=== PATIENT | male | born 1955 | race Caucasian/White ===

== ENCOUNTER 2020-12-09 06:01 | Inpatient (IN) ==
--- NOTE | 2020-12-03 09:44 | PAT Medication Instructions ---
Medication Instructions Date of Service December 03, 2020 Home Medications apixaban 5 mg tablet (Eliquis) 5 mg PO BID aspirin 81 mg tablet 81 mg PO QAM atorvastatin 20 mg tablet 20 mg PO HS diltiazem HCl 120 mg tablet 120 mg PO QAM levetiracetam 500 mg tablet (Keppra) 1,000 mg PO BID metoprolol succinate 50 mg tablet,extended release 24 hr 25 mg PO QAM multivitamin-ferrous fumarate-folic acid 18 mg-400 mcg tablet (Centrum) 1 tab PO QAM ASK your prescriber and surgeon apixaban 5 mg tablet (Eliquis) 5 mg PO BID aspirin 81 mg tablet 81 mg PO QAM DO NOT take the morning of surgery multivitamin-ferrous fumarate-folic acid 18 mg-400 mcg tablet (Centrum) 1 tab PO QAM Take morning of surgery With a small sip of water, OTHERWISE NOTHING TO EAT OR DRINK AFTER MIDNIGHT: diltiazem HCl 120 mg tablet 120 mg PO QAM levetiracetam 500 mg tablet (Keppra) 1,000 mg PO BID metoprolol succinate 50 mg tablet,extended release 24 hr 25 mg PO QAM Take evening before surgery atorvastatin 20 mg tablet 20 mg PO HS levetiracetam 500 mg tablet (Keppra) 1,000 mg PO BID Other Notes If you have any anesthesia-related questions please call us at [phone] or [phone] or [phone] or [phone]
--- NOTE | 2020-12-05 09:41 | Anesthesiology Consultation ---
Date of Service December 05, 2020 Assessment & Plan (1) Encounter for pre-operative examination: - COVID screening: Per assessment on 12/05: Travel screen negative, no known COVID-19 positive contacts or current COVID-19 related symptoms. Preop COVID test being done 12/05 at [facility] visit. Awaiting results. - ETOH use: 3-4 beers/day (typically nighttime). No morning ETOH use per pt. Chart Review Chart Review: Acceptable Risk for Surgery (pending surgeon-ordered cardiology preop evaluation) and Patient seen in Pre Admission Testing Teaching & Discussion Pre-Anesthesia Teaching/Discussion Notes: Instructed NPO after midnight before surgery,except medications with 15 cc of water. Medication instructions provided according to the [facility] guidelines. History Surgery Operation Date: 12/09/20 08:00 Proposed Procedures p Right Common Femoral Endarterectomy - Ortega Gonzalez MD Height/Weight Height: 5 ft 10 in Weight: 65.5 kg Allergies Allergy/AdvReac Type Severity Reaction Status Date / Time No Known Allergies Allergy Verified 12/02/20 15:44 Medications Home Medications Medication Instructions Recorded Confirmed Last Taken apixaban 5 mg tablet (Eliquis) 5 mg PO BID 12/02/20 12/02/20 Unknown aspirin 81 mg tablet 81 mg PO QAM 12/02/20 12/02/20 Unknown atorvastatin 20 mg tablet 20 mg PO HS 12/02/20 12/02/20 Unknown diltiazem HCl 120 mg tablet 120 mg PO QAM 12/02/20 12/02/20 Unknown levetiracetam 500 mg tablet 1,000 mg PO BID 12/02/20 12/02/20 Unknown (Keppra) metoprolol succinate 50 mg 25 mg PO QAM 12/02/20 12/02/20 Unknown tablet,extended release 24 hr multivitamin-ferrous 1 tab PO QAM 12/02/20 12/02/20 Unknown fumarate-folic acid 18 mg-400 mcg tablet (Centrum) Active Medications Generic Name Dose Route Start Last Admin Trade Name Freq PRN Reason Stop Dose Admin Sodium Chloride 1,000 mls @ 50 mls/hr 12/09/20 06:00 12/09/20 06:31 Nss 1000ml IV 12/10/20 01:59 50 mls/hr .Q20H SHAYE Administration Past Medical History Medical History Ascending aorta dilation Ascending aorta dilation on 07/26/20 echo (4.7cm) Atrial fibrillation Follows with Dr. Hays CAD (coronary artery disease) 2005- stent x1 ~2015- stents x2 Follows with Dr[address] Hays Hyperlipidemia Hypertension Myocardial Infarction ~2004 Seizure Last seizure ~2018 (grand-mal seizures), controlled with Keppra Exercise / Class Metabolic Activity II 4-5 Yardwork/Stairs/Walk up hill (one FS (no CP, no SOB)) Past Family History Family History Other No family history of adverse response to anesthesia Past Surgical History Surgical History H/O hand surgery Right hand ligament repair History of cardiac cath 2005- stent x1 ~2015- stents x2 S/P angiogram of extremity S/P left inguinal hernia repair S/P right knee arthroscopy Past Anesthesia History No Hx of Anesthesia Complications and No Family Hx of Anesthesia Complications History of PONV No Hx of PONV and No Hx of Motion Sickness Social History Smoking Status: Former smoker tobacco type: cigarettes Do You Dip or Chew Tobacco: No (Quit 2014) Smoking End Date: Quit 1990 Hx Alcohol Use: Yes Alcohol type: beer alcohol intake frequency: 3 or more drinks per day (3-4 beers/day (typically nighttime)) Hx Substance Use: No substance use type: does not use Review of Systems Patient denies chest pain, shortness of breath, dyspnea on exertion, fever, chills, cough, wheezing, palpitations. Physical Exam Vital Signs VITALS BP 174/77 P 91 TEMP 98.6 SP02 100%RA RESP 18 PHYSICAL Full cervical extension range of motion. Full TMJ range of motion. TMD 4 finger breaths Mallampati Score 3 Dentition: several missing teeth (sides/molars), + crown Lungs: clear throughout to auscultation Cardiac: regular rate and rhythm, no murmurs noted Spine: normal Carotid arteries: negative bruit Extremities: no edema Lab Results Anesthesia Preop Results Results Anesthesia Widget: WBC 6.28 K/uL (4.8-10.8) 12/05/20 Hgb 13.5 g/dL (14.0-18.0) L 12/05/20 Hct 38.9 % (42-52) L 12/05/20 Plt 321 K/uL (130-400) 12/05/20 Na 130 mmol/L (136-145) L 12/05/20 K 4.6 mmol/L (3.5-5.1) 12/05/20 Cl 97 mmol/L (98-107) L 12/05/20 CO2 26 mmol/L (21-32) 12/05/20 BUN 10 mg/dl (7-18) 12/05/20 Creat 0.71 mg/dl (0.6-1.4) 12/05/20 Glucose Level 88 mg/dl (70-99) 12/05/20 PT 10.3 Seconds (9.0-12.0) 12/05/20 PTT 29.8 Seconds (21.0-31.0) 12/05/20 INR 1.0 (0.9-1.1) 12/05/20 COVID-19 PCR NEGATIVE (Negative) 12/05/20 SARS-CoV-2, RNA, NAAT NEGATIVE (NEGATIVE) 12/09/20 Blood Type A Positive 12/05/20 Antibody Screen NEGATIVE 12/05/20 Testing Electrocardiogram Date: 06/27/20 SR at 68bpm. Probably inferior infarct. RSR' in V1. Subsequent echo 07/26/20* Chest X-Ray Date: 12/05/20 FINDINGS: Lung volumes are normal. There is no pneumothorax or pleural effusion. There is no consolidation to suggest pneumonia. Linear opacities within the periphery of the right upper lung is noted. There is prominence for the contour of the ascending aorta. Cardiac size is normal. There is no evidence for pulmonary edema. IMPRESSION: No acute cardiopulmonary findings.. Prominence of the contour of the ascending aorta. This could be due to vessel tortuosity however dilatation of the ascending aorta could appear similar. CTA of the chest is recommended to exclude aneurysmal dilatation. Linear right upper lung opacity which favors scarring. This can be assessed on the chest CT. Patient already has known hx of ascending aorta dilation as noted on 07/26/20 echo (4.7cm*) Echocardiogram Date: 07/26/20 EF 55-60%. No regional motion abnormality. Bicuspid aortic valve. Mild TR/MR/AI. Borderline pulmonary hypertension. Indeterminate diastolic function.
[~2020-12-09 06:01] MED LIST: CEFAZOLIN 1,000 MG/7.5 ML SYR IV SCH; SODIUM CHLORIDE 0.9% 1000ML 1,000 ML IV SCH
[2020-12-09 06:52] LABS: BUN Creatinine Ratio 12.6 (10-20); Calcium 9.3 mg/dl (8.5-10.1); Creatinine Clr Calc Pharmacy 89.8 ml/min; Est GFR (African American) 111.3 ml/min; Est GFR (Non-African American) 96.1 ml/min
[2020-12-09] MEDS ORDERED: ePHEDrine sulfate 50 MG/ML AMP IV PRN (07:00)
[2020-12-09] MEDS ORDERED: fentaNYL citrate 100 MCG/2 ML VIAL IV PRN (07:00)
[2020-12-09] MEDS ORDERED: HYDROmorphone INJ 2 MG/ML SYR/VIAL IV PRN (07:00)
[2020-12-09] MEDS ORDERED: ATROPINE SULFATE 0.1 MG/ML 10ML SYR IV PRN (07:00)
[2020-12-09] MEDS ORDERED: ONDANSETRON INJ 2 MG/ML 2 ML VIAL IV PRN ×2 (07:00→14:42)
[2020-12-09] MEDS ORDERED: HEPARIN (PORCINE) 1000 UNIT/ML 10 ML (CATH LAB USE ONLY) ONE (07:06)
[2020-12-09] MEDS ORDERED: GELATIN SPONGE SZ 100 ONE ×2 (07:07→07:53)
[2020-12-09] MEDS ORDERED: THROMBIN FOR SOLN 20000 UNIT KIT ONE (07:07)
[2020-12-09] MEDS ORDERED: PAPAVERINE HCL INJ 30 MG/ML 2 ML VIAL ONE (07:08)
[2020-12-09] MEDS ORDERED: LIDOCAINE 1% LOCAL 20 ML VIAL ONE (07:08)
[2020-12-09] MEDS ORDERED: BUPIVACAINE 0.5 % 5 MG/1 ML MPF 30ML VIAL ONE (07:09)
[2020-12-09] MEDS ORDERED: EPINEPHrine INJ 1 MG/ML AMP ONE (07:09)
--- NOTE | 2020-12-09 07:28 | History & Physical Bridge Note ---
Date of Service December 09, 2020 History & Physical Bridge Note I have examined the patient, reviewed the History & Physical and in the interval since the performance of the History & Physical I have noted the following changes of clinical significance: no changes noted
--- NOTE | 2020-12-09 07:28 | History & Physical Report ---
Date of Service December 09, 2020 History of Present Illness Primary Care Provider: Che Bland DO Name: WALLY KNIGHT Patient Number: [id number] : 1955 Date of Service: 11/11/2020 Chief Complaint: _New patient consultation for claudication HPI: _Mr. Knight is a middle-aged male who presents to Dr. Gonzalez's vascular surgery clinic today as a new patient in consultation for peripheral arterial disease and claudication symptoms. Patient states that he develops severe right leg numbness and tingling after ambulating less than 10 minutes. He states after resting for up to 5 minutes he is able to ambulate a similar but usually somewhat shorter distance before his symptoms return. This has been going on for a long time, however, he recently complained about it to one of his providers who sent him for evaluation by ultrasound. His waste baler then performed angiography of his bilateral lower extremities, which indicated severe stenosis versus occlusion of his right common femoral artery. This was unable to be traversed with a wire and the procedure was abandoned. Patient denies rest pain, nonhealing wounds or ulcers, discoloration of the feet or toes, headache, fever, chest pain, shortness of breath, abdominal pain, nausea, vomiting, other concerns. Review of systems: Total of 14 systems were reviewed and are negative aside from what is related in his HPI Imaging: Patient's arterial ultrasound was reviewed which indicates a severe stenosis versus occlusion of the distal external iliac/common femoral artery. His distal arteries were noncompressible and no JULIO CESAR was obtained. His carotid ultrasound did not demonstrate significant stenosis of his bilateral internal carotid arteries. And a recent echocardiogram demonstrated a bicuspid aortic valve with dilation of his ascending aorta at 4.7 cm. Current Home Meds: (Last Updated 11/11 13:54) apixaban (Eliquis 5 mg oral tablet) 5 mg PO bid aspirin (aspirin 81 mg oral delayed release tablet) 81 mg PO Daily atorvastatin (atorvastatin 20 mg oral tablet) 20 mg PO Daily dilTIAZem (DilTIAZem Hydrochloride SR 120 mg/12 hours oral capsule, extended release) 120 mg PO q12h levETIRAcetam (levETIRAcetam 500 mg oral tablet) 500 mg PO bid metoprolol (Metoprolol Succinate ER 50 mg oral tablet, extended release) multivitamin 1 tab PO Daily nitroglycerin (nitroglycerin 0.4 mg sublingual tablet) 0.4 mg SL q5min PRN: as needed for chest pain Allergies and Sensitivities: NKA Past Medical History: Problems: Occlusion of common femoral artery Coronary artery disease Atrial fibrillation Ascending thoracic aortic aneurysm Aortic insufficiency Epilepsy Hypertension Mitral insufficiency Bicuspid aortic valve Hyperlipidemia Tricuspid valve insufficiency Surgical history: Positive for hernia surgery, knee surgery, coronary c atheterization with stent placement x1, heart catheterization with stent placement x2, thumb surgery, finger surgery Family history: Coronary artery disease, hypertension, hyperlipidemia, myocardial infarction in his brother and his father. Coronary artery bypass graft, valvular heart disease in his father. Social history: Patient smoked 1 pack/day and quit in 1987, he has an occasional alcoholic beverage in the form of beer. He denies any illicit drug use. He is and has 1 child. OBJECTIVE Vitals: Last Updated 11/11/20 14:06 Date Temp BP Location Pulse RR SpO2 Pain 11/11/20 0 11/11/20 150/74 Right Arm 11/11/20 154/78 Left Arm 78 98 Vital Signs are the last 3 documented. No Orthostatic Data Available Height and Weight: Last Updated 11/11/20 14:04 Date BMI Wt(kg) Wt(lb) Method Ht(cm) (ft-in) Method 11/11/20 64.9 143 Standing Scale Heights and Weights are the last 3 documented. Physical Exam _ Constitutional: In general patient is a thin healthy-appearing well-nourished well-developed middle-aged male no distress. He is alert and oriented without any focal deficits. His head is normocephalic and atraumatic. His neck is supple nontender with a midline trachea. There is no bruit appreciable. His heart is regular with murmur, his lungs are decreased throughout but clear bilaterally. His abdomen is soft nontender with normoactive bowel sounds in all 4 quadrants. I do not appreciate a pulsatile mass. His femoral pulses are +3 on the left, barely palpable on the right. His right distal pulses are nonpalpable, toes are warm and pink and demonstrate capillary refill at 5 sec. his left foot distal pulses are +2, with brisk capillary refill. There is no sign of distal ischemia. There is no edema ASSESSMENT: _ PLAN: _ 1 ) _right common femoral artery occlusion with claudication Patient appears to have symptoms of claudication likely related to his right common femoral artery occlusion. Patient was also seen by Dr. Gonzalez today who evaluated the patient's imaging as well. He recommends that patient consider undergoing a right common femoral artery endarterectomy. The procedure risks benefits and alternatives were discussed with the patient. He expresses understanding and agreement to proceed. We will have him obtain cardiac clearance from his waste baler prior to his procedure. Patient is advised to call here with any other questions or concerns. Thank you for letting us participate in the care of this patient. Signature Line Electronic Signature on File Electronically Reviewed/Signed by: Carolann Grimes PA-C Author Signature Dt/Tm:11/11/2020 04:[address] [id number] Electronically Reviewed/Signed by: Ortega Gonzalez MD Cosigner Signature Dt/Tm: 11/12/2020 12:03 PM [employer] Safety Program Coordinator [address] [address] Result Type: HVI Outpt Note Date of Service: November 11, 2020 16:18 EDT Authorization Status: Final Author or Import Date: JOAQUIN Grimes, Carolann on November 11, 2020 16:31 EDT Verified By: MD Carlos, Ortega Velazco on November 12, 2020 12:03 EDT Encounter info: [id number], [place] [id number], Clinic, 11/11/2020 - 11/11/2020 Allergies Allergy/AdvReac Type Severity Reaction Status Date / Time No Known Allergies Allergy Verified 12/09/20 06:57 Home Medications Medication Instructions Recorded Confirmed Type apixaban 5 mg tablet (Eliquis) 5 mg PO BID 12/02/20 12/09/20 History aspirin 81 mg tablet 81 mg PO QAM 12/02/20 12/09/20 History atorvastatin 20 mg tablet 20 mg PO HS 12/02/20 12/09/20 History diltiazem HCl 120 mg tablet 120 mg PO QAM 12/02/20 12/09/20 History (Cardizem) levetiracetam 500 mg tablet 1,000 mg PO BID 12/02/20 12/09/20 History (Keppra) metoprolol succinate 50 mg 25 mg PO QAM 12/02/20 12/09/20 History tablet,extended release 24 hr multivitamin-ferrous 1 tab PO QAM 12/02/20 12/09/20 History fumarate-folic acid 18 mg-400 mcg tablet (Centrum) Past Med/Surg History Medical History Ascending aorta dilation Ascending aorta dilation on 07/26/20 echo (4.7cm) Atrial fibrillation Follows with Dr. Hays CAD (coronary artery disease) 2005- stent x1 ~2014- stents x2 Follows with Dr. Hays Hyperlipidemia Hypertension Myocardial Infarction ~2004 Seizure Last seizure ~2017 (grand-mal seizures), controlled with Keppra Surgical History H/O hand surgery Right hand ligament repair History of cardiac cath 2004- stent x1 ~2014- stents x2 S/P angiogram of extremity S/P left inguinal hernia repair S/P right knee arthroscopy Family History Other No family history of adverse response to anesthesia Social History Smoking Status: Former smoker Smoking End Date: Quit 1990; Second Hand Exposure: No; Do You Dip or Chew Tobacco: No (Quit 2014); Tobacco Cessation Education Requested by Patient: No Hx Alcohol Use: Yes Alcohol type: beer Hx Substance Use: No Preferred Language: Maltese Communication Ability: Effective Shovel Mechanic Required: No Beliefs That Will Affect Care: None Current Living Situation: Spouse Other Information That Helps Us Care for You: No Feels Safe at Home: Yes Safety Concerns: Feels Safe At This Time Assistive Devices: Glasses Results & Data ([facility]) Vital Signs (Past 12 Hours) Vital Signs Temp Pulse Resp BP Pulse Ox 12/09/20 06:37 36.6 C 68 20 175/87 H 100
[2020-12-09] MEDS ORDERED: LIDOCAINE 2% 2 ML VIAL/AMP(20MG/ML) INFIL ONE (07:30)
[2020-12-09] MEDS ORDERED: GLYCOPYRROLATE 0.2 MG/ML VIAL ONE (07:30)
[2020-12-09] MEDS ORDERED: NEOSTIGMINE METHYLSULFATE 1 MG/ML 10ML VIAL ONE (07:30)
[2020-12-09] MEDS ORDERED: fentaNYL citrate 100 MCG/2 ML VIAL ONE ×2 (07:30→07:31)
[2020-12-09] MEDS ORDERED: PROPOFOL IV EMULSION 10 MG/ML 20 ML VIAL IV ONE (07:30)
[2020-12-09] MEDS ORDERED: ONDANSETRON INJ 2 MG/ML 2 ML VIAL ONE (07:30)
[2020-12-09] MEDS ORDERED: DEXAMETHASONE SOD INJ 4 MG/ML VIAL ONE (07:30)
[2020-12-09] MEDS ORDERED: MIDAZOLAM HCL 1 MG/ML 2ML VIAL ONE (07:31)
[2020-12-09] MEDS ORDERED: PROTAMINE SULFATE 10 MG/ML 5 ML VIAL ONE (09:32)
[2020-12-09] MEDS ORDERED: ROCURONIUM BROMIDE 10 MG/ML 5 ML VIAL IV ONE ×2 (09:32)
[2020-12-09] MEDS ORDERED: ePHEDrine sulfate 50 MG/ML AMP ONE (09:32)
[2020-12-09] MEDS ORDERED: HEPARIN SOD (PORCINE) 1000 UNIT/ML ONE (09:32)
--- NOTE | 2020-12-09 09:51 | Operative Report ---
Post Operative Report Pre & Post Diagnosis Operation Date: 12/09/20 08:00 Pre-Op Diagnosis: Right Common Femoral Artery Occlusion Post-Op Diagnosis: Right Common Femoral Artery Occlusion I identified the patient and participated in the time-out.: Yes Procedure Operation Date: 12/09/20 08:00 Actual Procedures p Right Common Femoral Endarterectomy with bovine patch angioplasty. (Right) - Ortega Gonzalez MD Surgeon Ortega Gonzalez MD Structural Analysis Engineer Monica,PAC Estimated Blood Loss 150 Findings Consistent with Post-Op Diagnosis Specimens right common femoral artery plaque Anesthesia Type General Complications none Disposition Accompanied Patient To Recovery: No Disposition: Recovery Room Indications This is a 65-year-old gentleman with severe claudication right lower extremity. He was found to have a right common femoral artery occlusion. Endarterectomy with patch was recommended. I have discussed the risks options and benefits of the procedure with the patient. The patient understands the risks options and benefits and agrees to the procedure. Description of Procedure The patient was taken to the operating room and placed in the supine position. The right groin was prepped and draped in a sterile manner. A timeout was performed and the patient was identified. Longitudinal incision was made in the right groin. The common femoral artery was then exposed from the inguinal ligament down past the bifurcation. Above the inguinal ligament the artery was soft with a mild posterior plaque. Patient was heparinized at that time. After adequate position was accomplished the profunda superficial femoral and distal external iliac arteries were clamped. Longitudinal arteriotomy was started in the common femoral artery extended upward and downward. The arteriotomy extended upward to just underneath the inguinal ligament. It extended distally approximately 2 cm onto the superficial femoral artery. There is a large amount of bound up plaque throughout the common femoral artery extending into the origin of the superficial femoral artery. Endarterectomy was then accomplished in the usual fashion. The appropriate plane was entered and the plaque was removed from the the entire length of the incision. The origin of the superficial femoral artery and profundofemoral arteries were now widely patent. 7-0 Prolene's were used to tack the plaque down in the superficial femoral artery at 3 locations. Once this was done a bovine patch was brought to the operative field and sewn in place in the usual fashion using running 5-0 Prolene suture. Prior to completing the closure backbleeding for bleeding was allowed to occur. The final few sutures were then placed and securely tied. Clamps were removed. Excellent pulse was felt in the superficial femoral profundofemoral artery distally. Adequate stasis was then obtained. There was a couple repair sutures needed for bleeding in between the sutures. After active hemostasis was seen of the suture line and as well as the wound the wound was closed in the usual fashion using running 2-0 Vicryl suture for the femoral sheath. 3-0 Vicryl suture was used for the subcutaneous layer and kristy for the skin edges. Sterile dressings were applied to the wound.The patient left the operation room in satisfactory condition and tolerated the procedure well. All needle and sponge counts were correct at the end of the procedure. Carolann Grimes Pac assisted due to lack of resident availability and was necessary for positioning, draping, retraction, wound closure deep layers, subcutaneous tissue, and skin closure and was necessary for assisting with the case. I attest to the content of the Intraoperative Record and any orders documented therein. Any exceptions are noted below.
--- NOTE | 2020-12-09 10:27 | Anesthesiology Progress Note ---
Date of Service December 09, 2020 Anesthesia Post Procedure Vital Signs Vital Signs: Temp Pulse Pulse Resp BP Pulse Ox 12/09/20 10:25 36.7 C 63 19 127/65 100 12/09/20 10:15 65 14 115/66 98 12/09/20 10:05 75 15 144/79 H 96 12/09/20 09:56 36.7 C 92 H 12 152/94 H 95 12/09/20 06:37 36.6 C 68 20 175/87 H 100 Transfer of Care Handoff Completed per policy Notes Mental Status: alert / awake / arousable and participated in evaluation Patient Amnestic to Procedure: Yes Nausea / Vomiting: adequately controlled Pain: adequately controlled Airway Patency, RR, SpO2: stable & adequate BP & HR: stable & adequate Hydration State: stable & adequate Anesthetic Complications: no major complications apparent and Pt Satisfied with anesthetic care
[2020-12-09 10:38] LABS: Basophils # (auto) 0.01 K/uL (0-0.2); Basophils % (auto) 0.1 %; Eosinophils # (auto) 0.14 K/uL (0-0.5); Eosinophils % (auto) 1.9 %; Hematocrit (blood only) 31.8 % (42-52); Hemoglobin 11.1 g/dL (14.0-18.0); Immature Granulocytes # (auto) 0.05 K/uL (0.00-0.02); Immature Granulocytes % (auto) 0.7 %; Lymphocytes # (auto) 0.81 K/uL (1.2-3.4); Lymphocytes % (auto) 10.8 %; Mean Corpuscular Hemoglobin 32.5 pg (25-34); Mean Platelet Volume 8.1 fL (7.4-10.4); Monocytes # (auto) 0.56 K/uL (0.11-0.59); Monocytes % (auto) 7.5 %; Neutrophils # (auto) 5.93 K/uL (1.4-6.5); Platelet Count 221 K/uL (130-400); RDW Coefficient of Variation 12.3 % (11.5-14.5); RDW Standard Deviation 41.9 fL (36.4-46.3); Red Blood Count 3.42 M/uL (4.7-6.1)
[2020-12-09 10:40] LABS: Mean Corpuscular Hgb Conc 34.9 g/dL (32-36)
[2020-12-09] MEDS ORDERED: D5W AND 1/2NSS 1,000 ML IV SCH (14:42)
[2020-12-09] MEDS ORDERED: MoRPHine SULFATE 4 MG/ML 1 ML CARP\\VIAL IV PRN (14:42)
[2020-12-09] MEDS ORDERED: oxyCODONE/ACETAMINOPHEN 5mg/325mg TAB PO PRN (14:42)
[2020-12-09] MEDS: ceFAZolin 1000MG 1,000 MG/7.5 ML SYR IV SCH (18:01)
[2020-12-09] MEDS ORDERED: ATORVASTATIN 20 MG TAB PO SCH (21:00)
[2020-12-09] MEDS: levETIRAcetam 500 MG TAB PO SCH (21:06)
[2020-12-09] MEDS: APIXABAN 5 MG TABLET PO SCH (21:07)
[2020-12-10] MEDS: ceFAZolin 1000MG 1,000 MG/7.5 ML SYR IV SCH (02:02)
[2020-12-10 06:53] LABS: Basophils # (auto) 0.01 K/uL (0-0.2); Basophils % (auto) 0.1 %; Eosinophils # (auto) 0.06 K/uL (0-0.5); Eosinophils % (auto) 0.5 %; Hematocrit (blood only) 32.8 % (42-52); Hemoglobin 11.3 g/dL (14.0-18.0); Immature Granulocytes # (auto) 0.04 K/uL (0.00-0.02); Immature Granulocytes % (auto) 0.3 %; Lymphocytes # (auto) 1.35 K/uL (1.2-3.4); Mean Corpuscular Hemoglobin 32.1 pg (25-34); Mean Corpuscular Hgb Conc 34.5 g/dL (32-36); Mean Corpuscular Volume 93.2 fL (80-100); Mean Platelet Volume 8.3 fL (7.4-10.4); Monocytes # (auto) 1.43 K/uL (0.11-0.59); Monocytes % (auto) 11.7 %; Neutrophils # (auto) 9.33 K/uL (1.4-6.5); Neutrophils % (auto) 76.4 %; Platelet Count 231 K/uL (130-400); RDW Coefficient of Variation 12.2 % (11.5-14.5); RDW Standard Deviation 41.8 fL (36.4-46.3); Red Blood Count 3.52 M/uL (4.7-6.1); White Blood Count 12.22 K/uL (4.8-10.8)
[2020-12-10] MEDS: levETIRAcetam 500 MG TAB PO SCH (08:39)
[2020-12-10] MEDS: APIXABAN 5 MG TABLET PO SCH (08:39)
[2020-12-10] MEDS ORDERED: METOPROLOL SUCC 25MG EXT REL TAB PO SCH (09:00)
[2020-12-10] MEDS ORDERED: dilTIAZem HCL 120 MG CAPCR PO SCH (09:00)
[2020-12-10] MEDS ORDERED: CEROVITE ADV FORMULA TAB PO SCH (09:00)
[2020-12-10] MEDS ORDERED: ASPIRIN 81 MG ECTAB PO SCH (09:00)
--- NOTE | 2020-12-10 09:20 | Surgery Progress Note ---
Date of Service December 10, 2020 Assessment & Plan (1) Occlusion of common femoral artery: Plan: Pt now s/p R common fem art endarterectomy with bovine patch. Doing well post op. Pt also seen by Dr Gonzalez today. Will d/c home today. Patient was seen, examined, and chart reviewed. Agree with exam and treatment plan of the Vascular PA. Admission and Anticipated Discharge Date Admission Date: December 09, 2020 Subjective 65 yo m POD #1 after R Common fem endarterectomy, seen in f/u today. Pt states overall feeling well. Admits pain in R groin incision, worse with movement, but denies any other complaints. Review of Systems Review of Systems: 14 systems reviewed and negative aside from HPI Physical Exam Constitutional: WD/WN, vitals as above cooperative and comfortable; not in distress Respiratory: normal respiratory effort, lungs clear to auscultation Cardiovascular: Rate/Rhythm: + irregularly irregular Vessels: femoral pulses present, posterior tibial pulses present and dorsalis pedis pulses present; + abnormal peripheral pulses Extremities: normal capillary refill; no edema Gastrointestinal (Abdomen): Inspection/Auscultation: normal bowel sounds; a bdomen not distended Percussion/Palpation: abdomen soft; abdomen nontender Musculoskeletal: no cyanosis or clubbing, extremities motor strength 5/5 Skin: + incision (R groin incision C/D/I with kristy. +local tender/mild edema, no hematoma ) Psychiatric: A+Ox3, euthymic affect Results & Data ([facility]) Vital Signs (Past 12 Hours) Vital Signs Temp Pulse Resp BP Pulse Ox 12/10/20 07:10 36.7 C 62 18 171/76 H 100 12/10/20 06:08 36.8 C 58 L 16 155/71 H 99 12/10/20 03:32 36.6 C 60 16 159/71 H 99 12/09/20 23:44 36.8 C 64 18 135/63 98 12/09/20 22:44 36.7 C 67 16 136/62 99
--- NOTE | 2020-12-10 09:22 | Discharge Summary ---
Date of Service December 10, 2020 Admission HPI Per Admitting Provider Name: WALLY KNIGHT Patient Number: [id number] : 1955 Date of Service: 11/11/2020 Chief Complaint: _New patient consultation for claudication HPI: _Mr. Knight is a middle-aged male who presents to Dr. Gonzalez's vascular surgery clinic today as a new patient in consultation for peripheral arterial disease and claudication symptoms. Patient states that he develops severe right leg numbness and tingling after ambulating less than 10 minutes. He states after resting for up to 5 minutes he is able to ambulate a similar but usually somewhat shorter distance before his symptoms return. This has been going on for a long time, however, he recently complained about it to one of his providers who sent him for evaluation by ultrasound. His pet stylist then performed angiography of his bilateral lower extremities, which indicated severe stenosis versus occlusion of his right common femoral artery. This was unable to be traversed with a wire and the procedure was abandoned. Patient denies rest pain, nonhealing wounds or ulcers, discoloration of the feet or toes, headache, fever, chest pain, shortness of breath, abdominal pain, nausea, vomiting, other concerns. Review of systems: Total of 14 systems were reviewed and are negative aside from what is related in his HPI Imaging: Patient's arterial ultrasound was reviewed which indicates a severe stenosis versus occlusion of the distal external iliac/common femoral artery. His distal arteries were noncompressible and no JULIO CESAR was obtained. His carotid ultrasound did not demonstrate significant stenosis of his bilateral internal carotid arteries. And a recent echocardiogram demonstrated a bicuspid aortic valve with dilation of his ascending aorta at 4.7 cm. Current Home Meds: (Last Updated 11/11 13:54) apixaban (Eliquis 5 mg oral tablet) 5 mg PO bid aspirin (aspirin 81 mg oral delayed release tablet) 81 mg PO Daily atorvastatin (atorvastatin 20 mg oral tablet) 20 mg PO Daily dilTIAZem (DilTIAZem Hydrochloride SR 120 mg/12 hours oral capsule, extended release) 120 mg PO q12h levETIRAcetam (levETIRAcetam 500 mg oral tablet) 500 mg PO bid metoprolol (Metoprolol Succinate ER 50 mg oral tablet, extended release) multivitamin 1 tab PO Daily nitroglycerin (nitroglycerin 0.4 mg sublingual tablet) 0.4 mg SL q5min PRN: as needed for chest pain Allergies and Sensitivities: NKA Past Medical History: Problems: Occlusion of common femoral artery Coronary artery disease Atrial fibrillation Ascending thoracic aortic aneurysm Aortic insufficiency Epilepsy Hypertension Mitral insufficiency Bicuspid aortic valve Hyperlipidemia Tricuspid valve insufficiency Surgical history: Positive for hernia surgery, knee surgery, coronary catheterization with stent placement x1, heart catheterization with stent placement x2, thumb surgery, finger surgery Family history: Coronary artery disease, hypertension, hyperlipidemia, myocardial infarction in his brother and his father. Coronary artery bypass graft, valvular heart disease in his father. Social history: Patient smoked 1 pack/day and quit in 1987, he has an occasional alcoholic beverage in the form of beer. He denies any illicit drug use. He is and has 1 child. OBJECTIVE Vitals: Last Updated 11/11/20 14:06 Date Temp BP Location Pulse RR SpO2 Pain 11/11/20 0 11/11/20 150/74 Right Arm 11/11/20 154/78 Left Arm 78 98 Vital Signs are the last 3 documented. No Orthostatic Data Available Height and Weight: Last Updated 11/11/20 14:04 Date BMI Wt(kg) Wt(lb) Method Ht(cm) (ft-in) Method 11/11/20 64.9 143 Standing Scale Heights and Weights are the last 3 documented. Physical Exam _ Constitutional: In general patient is a thin healthy-appearing well-nourished well-developed middle-aged male no distress. He is alert and oriented without any focal deficits. His head is normocephalic and atraumatic. His neck is supple nontender with a midline trachea. There is no bruit appreciable. His heart is regular with murmur, his lungs are decreased throughout but clear bilaterally. His abdomen is soft nontender with normoactive bowel sounds in all 4 quadrants. I do not appreciate a pulsatile mass. His femoral pulses are +3 on the left, barely palpable on the right. His right distal pulses are nonpalpable, toes are warm and pink and demonstrate capillary refill at 5 sec. his left foot distal pulses are +2, with brisk capillary refill. There is no sign of distal ischemia. There is no edema ASSESSMENT: _ PLAN: _ 1 ) _right common femoral artery occlusion with claudication Patient appears to have symptoms of claudication likely related to his right common femoral artery occlusion. Patient was also seen by Dr. Gonzalez today who evaluated the patient's imaging as well. He recommends that patient consider undergoing a right common femoral artery endarterectomy. The procedure risks benefits and alternatives were discussed with the patient. He expresses understanding and agreement to proceed. We will have him obtain cardiac clearance from his pet stylist prior to his procedure. Patient is advised to call here with any other questions or concerns. Thank you for letting us participate in the care of this patient. Signature Line Electronic Signature on File Electronically Reviewed/Signed by: Carolann Grimes PA-C Author Signature Dt/Tm:11/11/2020 04:31 PM [facility] [address] [id number] Electronically Reviewed/Signed by: Ortega Gonzalez MD Cosigner Signature Dt/Tm: 11/12/2020 12:03 PM [employer] [address] [address] Result Type: HVI Outpt Note Date of Service: November 11, 2020 16:18 EDT Authorization Status: Final Author or Import Date: JOAQUIN Grimes Lynn on November 11, 2020 16:31 EDT Verified By: MD Carlos, Ortega Velazco on November 12, 2020 12:03 EDT Encounter info: [id number], [id number], Clinic, 11/11/2020 - 11/11/2020 Admission Exam Per Admitting Provider Constitutional: In general patient is a thin healthy-appearing well-nourished well-developed middle-aged male no distress. He is alert and oriented without any focal deficits. His head is normocephalic and atraumatic. His neck is supple nontender with a midline trachea. There is no bruit appreciable. His heart is regular with murmur, his lungs are decreased throughout but clear bilaterally. His abdomen is soft nontender with normoactive bowel sounds in all 4 quadrants. I do not appreciate a pulsatile mass. His femoral pulses are +3 on the left, barely palpable on the right. His right distal pulses are nonpalpable, toes are warm and pink and demonstrate capillary refill at 5 sec. his left foot distal pulses are +2, with brisk capillary refill. There is no sign of distal ischemia. There is no edema Principal Diagnosis 1. s/p R common femoral artery endarterectomy with bovine patch 2. R common femoral artery occlusion Discharge Exam Constitutional WD/WN, vitals as above cooperative and comfortable; not in distress Respiratory normal respiratory effort, lungs clear to auscultation Cardiovascular Rate/Rhythm: + irregularly irregular Vessels: femoral pulses present, posterior tibial pulses present and dorsalis pedis pulses present; + abnormal peripheral pulses Extremities: normal capillary refill; no edema Gastrointestinal (Abdomen) Inspection/Auscultation: normal bowel sounds; abdomen not distended Percussion/Palpation: abdomen soft; abdomen nontender Musculoskeletal no cyanosis or clubbing, extremities motor strength 5/5 Skin + incision (R groin incision C/D/I with kristy. +local tender/mild edema, no hematoma ) Psychiatric A+Ox3, euthymic affect Discharge Data Allergies Allergy/AdvReac Type Severity Reaction Status Date / Time No Known Allergies Allergy Verified 12/09/20 06:57 Procedures Performed Operation Date: 12/09/20 08:00 Actual Procedures p Right Common Femoral Endarterectomy with bovine patch angioplasty. (Right) - Ortega Gonzalez MD Hospital Course (1) Occlusion of common femoral artery: Pt now s/p R common fem art endarterectomy with bovine patch. Doing well post op. Pt also seen by Dr Gonzalez today. Will d/c home today. Total Time Total Time Spent Total Time Spent (In Minutes): 0 Discharge Plan Discharge Items Patient Disposition: Home - Self-Care Reason For Visit: Right Common Femoral Artery Occlusion Discharge Diagnosis: 1. s/p Right Common Femoral Artery Endarterectomy with Bovine Patch 2. Right common femoral artery occlusion Condition on Discharge: Good Activity: Per Instructions section Driving/Machine Use: No driving x 1 week Non-emergency contact: Primary Care Provider and Surgeon Call non-emergency contact if: you have any medication questions, your pain is not controlled, your pain is concerning for you, you have a fever, your wound has increased redness and your wound has increased drainage Follow-up/Referrals: Ortega Gonzalez MD [Physician] - (Follow up with Dr Gonzalez or Carolann Grimes PA-C, in2 weeks for staple removal) Che Bland, DO [Primary Care Provider] - Diet: Heart Healthy Addtl Attending Provider Instructions: ACTIVITY RECOMMENDATIONS: See Above SPECIAL CARE INSTRUCTIONS: Call your doctor if: * Temperature above 101 degrees * Pain not relieved by pain medicine ordered * There is increased drainage or redness from any incision * You have any unanswered questions or concerns. Pending Studies at Discharge: No Stand-Alone Forms: [email or web address], Smoking Cessation Medications and DC Order Prescriptions: New oxycodone-acetaminophen [Percocet] 5-325 mg Tablet 1 - 2 tab PO Q4H PRN (Reason: pain) Qty: 30 RF: 0 Continued atorvastatin 20 mg Tablet 20 mg PO HS RF: 0 metoprolol succinate 50 mg Tablet Extended Release 24 Hr 25 mg PO QAM RF: 0 levetiracetam [Keppra] 500 mg Tablet 1,000 mg PO BID RF: 0 diltiazem HCl [Cardizem] 120 mg Tablet 120 mg PO QAM RF: 0 aspirin 81 mg Tablet 81 mg PO QAM RF: 0 Centrum 18-400 mg-mcg Tablet 1 tab PO QAM RF: 0 Eliquis 5 mg Tablet 5 mg PO BID RF: 0 Discharge Orders: Discharge Order (Routine); Ordered 12/10/20 Ordered By: Carolann Grimes Admission Data Admit Date/Time: 12/09/20 07:28 Attending Provider: Ortega Gonzalez Admit Provider: Ortega Gonzalez Primary Care Provider: Che Bland
== END 2020-12-10 13:45 | disposition home or self-care (01) | DRG 253 ==
LOC: ASU 06:01 → PACUINP 07:28 → 3E 14:41